=== PATIENT | female | born 1995 | race Caucasian/White ===

== ENCOUNTER 2016-11-02 21:45 | Emergency (ER) | payer SELFPAY ==
[~2016-11-02] VITALS: Ht 167.6 cm; Wt 65.8 kg
[2016-11-02] MEDS ORDERED: OXYCODONE/APAP 5-325 MG TABLET PO ONE (22:30)
[2016-11-02] MEDS ORDERED: PENICILLIN V POTASSIUM 500 MG TABLET PO ONE (22:30)
[2016-11-02] MEDS ORDERED: ONDANSETRON ODT 4 MG TAB.RAPDIS SL ONE (22:30)
[2016-11-02] MEDS ORDERED: ONDANSETRON ODT 4 MG TAB.RAPDIS ONE (22:39)
[2016-11-02] MEDS ORDERED: PENICILLIN V POTASSIUM 500 MG TABLET ONE (22:40)
[2016-11-02] MEDS ORDERED: OXYCODONE/APAP 5-325 MG TABLET ONE (22:40)
--- NOTE | 2016-11-02 22:44 | NUR ---
Patient discharged to home in stable conditon. Written and verbal after care instructions given. Patient verbalizes understanding of instructions.
== END 2016-11-02 22:55 | disposition home or self-care (01) ==
LOC: ER 21:47
DX: K02.9 Dental caries, unspecified (principal); K04.7 Periapical abscess without sinus; K08.89 Other specified disorders of teeth and supporting structures
CPT/HCPCS: A4663; Q0162